=== PATIENT | male | born 1955 | race Caucasian/White ===

== ENCOUNTER 2019-04-11 12:35 | Outpatient (CLI) | payer OTHER, MEDICARE ==
--- NOTE | 2019-04-11 13:40 | MRI ---
MRI of thecervical spine: 04/11/2019 COMPARISON:None available HISTORY:Mid cervical pain TECHNIQUE: Multiplanar multisequence MR imaging of thecervical spine without contrast Findings:The axial and sagittal imaging is limited by motion. Sagittal STIR imaging demonstrates no focal area of osseous marrow edema. Cervical vertebral body height and alignment appears within normal limits. No prevertebral soft tissu e abnormality. Moderate degenerative change is seen at the atlantoaxial interspace. The craniocervical junction and cervicothoracic junction is intact. Incidental note is made of multilevel small bilateral perineural sleeve cysts. The normal flow void of the right vertebral artery is not appreciated on the axial T2 imaging suggest ing possible vertebral artery occlusion. C2-3: No central canal or neural foraminal stenosis C3-4: There is disc desiccation with no central canal stenosis. Bilateral facet and uncovertebral ost eophyte causes moderate/severe bilateral neural foraminal stenosis. C4-5: There is disc desiccation. No central canal stenosis. Bilateral facet and uncovertebral osteoph yte formation with probable moderate bilateral neural foraminal stenosis, left greater than right. C5-6: There is disc desiccation. No central canal stenosis. Mild bilateral facet and uncovertebral os teophyte formation. Mild bilateral neural foraminal stenosis. C6-7: There is disc space narrowing with disc desiccation and disc bulge partially effacing the ventr al thecal sac and causing mild central canal stenosis. Bilateral facet and uncovertebral osteophyte formation noted with moderate/severe bilateral neural foraminal stenosis. C7-T1: Bilateral facet hypertrophy with no significant central canal or neural foraminal stenosis. The axial T2 imaging demonstrates no focal area of abnormal signal intensity within the cervical cord . IMPRESSION: 1. Multilevel degenerative change as detailed above. 2. Possible right vertebral artery occlusion.
--- NOTE | 2019-04-11 15:38 | MRI ---
MRI OF THE THORACIC SPINE PERFORMED WITHOUT CONTRAST ENHANCEMENT: 04/11/19 HISTORY: Mid back pain for a year and a half. The vertebral bodies are normal in height. Disc spaces all appear relatively well preserved. Cord sig nal change is within normal limits. No canal or foraminal stenosis. Small left sided cyst is seen inv olving one of the upper left nerve roots of incidental note and small nerve root cyst at the cervicot horacic junction. No paravertebral masses. There are hyperdensities involving the kidney which are most likely cysts. At the C6-7 level on the country manager images, there is a slightly prominent disc bulge. Please refer to the MRI cervical spine report concerning this finding. IMPRESSION: Essentially unremarkable MRI of the thoracic spine. POS: DODIE
== END 2019-04-11 12:36 | disposition home or self-care (01) ==
LOC: TBSIIMAG 12:35
PROVIDERS: ATTEND Physician Assistant
DX: M54.12 Radiculopathy, cervical region (principal); M54.6 Pain in thoracic spine; M25.78 Osteophyte, vertebrae
CPT/HCPCS: 72141; 72146

== ENCOUNTER 2019-07-24 06:07 | Outpatient (CLI) | payer BC, MEDICARE, OTHER ==
[2019-07-24 12:22] LABS: #Basophils 0.1 thou/uL (0.0-0.2); #Eosinphils 0.3 thou/uL (0.0-0.7); #Lymphocytes 2.8 thou/uL (1.20-3.40); #Neutrophils 7.2 thou/uL (1.40-6.50); %Eosinophils 2.6 % (0.0-10.0); %Lymphocytes 24.2 % (21.0-51.0); %Monocytes 8.8 % (0.0-10.0); %Neutrophils 63.5 % (42.0-75.0); Mean Corpuscular HGB CONC 32.2 g/dL (32.0-36.0); Mean Corpuscular Hemoglobin 30.3 pg (27.0-31.0); Mean Platelet Volume 11.6 fL (7.4-10.4); Platelet Count 228 thou/uL (130-400); RBC Distribution Width 12.2 % (11.5-14.5); Red Blood Cell (RBC) Count 4.96 mill/uL (4.70-6.10); White Blood Cell (WBC) Count 11.4 thou/uL (4.8-10.8)
[2019-07-24 12:44] LABS: Anion Gap 14 mmol/L (10-20); BUN (Urea Nitrogen) 20 mg/dL (8.4-25.7); Calc. Creatinine Clearance 0 mL/min (70-130); Calcium 9.4 mg/dL (7.8-10.44); Carbon Dioxide 23 mmol/L (23-31); Chloride 109 mmol/L (98-107); Estimated GFR-MDRD 83; Glucose 88 mg/dL (80-115); Potassium 4.6 mmol/L (3.5-5.1); Sodium 141 mmol/L (136-145)
--- NOTE | 2019-07-24 17:38 | EKG ---
Test Reason : Blood Pressure : / mmHG Vent. Rate : 064 BPM Atrial Rate : 064 BPM P-R Int : 150 ms QRS Dur : 080 ms QT Int : 404 ms P-R-T Axes : 066 026 052 degrees QTc Int : 416 ms Normal sinus rhythm Normal ECG No previous ECGs available Confirmed by VAL OLSEN, DR. Mathew ([id number]) on 07/24/2019 5:38:10 PM Referred By: JEFFREY Confirmed By:DR. Quincy NEAL MD
[2019-07-24 18:37] LABS: SARS-CoV-2 MS2 Positive; SARS-CoV-2 N Gene Negative; SARS-CoV-2 S Gene Negative; SARS-CoV-2 orf1ab Negative
== END 2019-07-24 06:08 | disposition home or self-care (01) ==
LOC: LABBT 06:07
PROVIDERS: ATTEND Neurological Surgery
DX: Z01.818 Encounter for other preprocedural examination (principal); Z11.59 Encounter for screening for other viral diseases; M54.12 Radiculopathy, cervical region
CPT/HCPCS: 80048; 85025; 87635; 93005; 93010; U0003

== ENCOUNTER 2019-07-29 06:42 | Observation (INO) | payer BC, MEDICARE ==
[2019-07-29] MEDS ORDERED: Fentanyl 100 MCG/2 ML VIAL ONE ×2 (07:33→10:29)
[2019-07-29] MEDS ORDERED: Labetalol HCl 100 MG/20 ML VIAL ONE ×2 (07:41→12:35)
[2019-07-29] MEDS ORDERED: Ondansetron HCl/PF 4 MG/2 ML Vial IVP PRN (09:38)
[2019-07-29] MEDS ORDERED: Morphine Sulfate 2 MG/ML SYRINGE SLOW IVP PRN (09:38)
[2019-07-29] MEDS ORDERED: PACU-Morphine 4MG/ML VIAL SLOW IVP PRN (09:38)
[2019-07-29] MEDS ORDERED: HYDROmorphone 2 MG/ML VIAL SLOW IVP PRN (09:38)
[2019-07-29] MEDS ORDERED: Promethazine HCl 25 MG/ML VIAL SLOW IVP PRN (09:38)
[2019-07-29] MEDS ORDERED: Promethazine HCl 25 MG/ML VIAL IM PRN ×2 (09:38→10:22)
[2019-07-29] MEDS ORDERED: Albuterol Sulfate HFA (OR ONLY) ONE ×2 (09:41→12:35)
[2019-07-29] MEDS ORDERED: traMADol HCl 50 MG TAB PO PRN ×2 (10:22)
[2019-07-29] MEDS ORDERED: diphenhydrAMINE 25 MG CAP PO PRN (10:22)
[2019-07-29] MEDS ORDERED: Milk Of Magnesia 30 ML UDCUP PO PRN (10:22)
[2019-07-29] MEDS ORDERED: Mag-Al 1200 mg/1200 mg/30 ML UDCUP PO PRN (10:22)
[2019-07-29] MEDS ORDERED: Promethazine 25 MG TAB PO PRN (10:22)
[2019-07-29] MEDS ORDERED: tiZANidine HCl 4 MG TAB PO PRN (10:22)
[2019-07-29] MEDS ORDERED: diphenhydrAMINE 50 MG/ML VIAL IVP PRN (10:22)
[2019-07-29] MEDS ORDERED: Morphine 2 MG/ML SYRINGE SLOW IVP PRN (10:22)
[2019-07-29] MEDS ORDERED: Promethazine HCl 12.5 MG SUPP PR PRN (10:22)
[2019-07-29] MEDS ORDERED: Morphine 4 MG/ML VIAL SLOW IVP PRN (10:22)
[2019-07-29] MEDS ORDERED: HYDROcodone/Acetaminophen 10/325 mg Tablet PO PRN (10:22)
[2019-07-29] MEDS ORDERED: Ondansetron PF 4 MG/2 ML Vial IVP PRN (10:25)
--- NOTE | 2019-07-29 10:25 | OP ---
DATE OF PROCEDURE: 07/29/2019 QA AUTOMATION ARCHITECT: Liliana Mcdonnell PA-C PROCEDURES PERFORMED: Anterior cervical diskectomy C6-C7, interbody arthrodesis, intervertebral biomechanical device, local morselized autograft, demineralized bone matrix, anterior titanium instrumentation, C6-C7. DESCRIPTION OF PROCEDURE: The patient was brought to the operating room and intubated. He was positioned supine with head in modest extension on a gel-filled donut. An incision was made in the right precervical area and dissected medial to the sternocleidomastoid muscle. We identified the anterior cervical spine, and the level was confirmed by x-ray. We debrided the anterior osteophytes. We placed distraction across the disk spaces and completely removed the intervertebral disk at C6-C7. Next, bony endplates were decorticated for the purpose of arthrodesis and appropriate-sized intervertebral biomechanical PEEK device was brought into the field and filled with demineralized bone matrix and local morselized autograft, and tapped in place securely at C6-C7. Next, an anterior plate was brought into the field and secured to C6 and C7 using two 14-mm screws at each level. The wound was then extensively irrigated and MAC hemostasis was secured, and the wound was closed in anatomic layers over drain. Job ID: [id number]
[2019-07-29] MEDS ORDERED: Ondansetron PF 4 MG/2 ML Vial ONE (12:35)
[2019-07-29] MEDS ORDERED: PROPOFOL 200 MG/20 ML VIAL ONE (12:35)
[2019-07-29] MEDS ORDERED: Rocuronium Bromide 10 MG/ML (10ML VIAL) ONE (12:35)
[2019-07-29] MEDS ORDERED: Dexamethasone 20 MG/5 ML VIAL ONE (12:35)
[2019-07-29] MEDS ORDERED: PHENYLEPHRINE-NS 100 MCG/ML 10 ML SYRINGE ONE (12:35)
[2019-07-29] MEDS ORDERED: Lidocaine 1% PF 5 ML VIAL ONE (12:35)
[2019-07-29] MEDS ORDERED: Glycopyrrolate 0.2 MG/ML 5 ML SYRINGE ONE (12:35)
[2019-07-29 13:18] VITALS: BMI 36.2
[2019-07-29] MEDS: CEFAZOLIN 2 GM in Premix Bag 1 BAG IVPB SCH ×2 (15:38→23:47)
[2019-07-29] MEDS: Sodium Chloride 0.9% 1,000 ML IV SCH ×2 (15:38→23:46)
[2019-07-29] MEDS: Cepastat Lozenges 1 LOZ PO PRN ×2 (19:42→22:27)
[2019-07-29] MEDS: HYDROcodone/Acetaminophen 10/325 mg Tablet PO PRN (20:17)
[2019-07-30] MEDS: Sodium Chloride 0.9% 1,000 ML IV SCH (07:41)
[2019-07-30] MEDS: HYDROcodone/Acetaminophen 10/325 mg Tablet PO PRN (08:22)
[2019-07-30] MEDS: CEFAZOLIN 2 GM in Premix Bag 1 BAG IVPB SCH (09:10)
[2019-07-30 11:02] VITALS: BP 167/89; TEMP 97.9
--- NOTE | 2019-07-31 06:47 | DIS ---
DATE OF ADMISSION: 07/29/2019 DATE OF DISCHARGE: 07/30/2019 The patient is a 63-year-old male, recently evaluated in our office for progressive neck pain. He was found to have significant degenerative disk disease at C6-C7. He underwent C6-C7 ACDF on 07/29/2019. Following the surgery, he was transitioned to the Med/Surg floor, where his pain was well controlled with p.o. medications, he was tolerating a regular diet, and he was voiding appropriately. MAYO drain was placed intraoperatively and had only 15 mL out over the first night. On exam on postoperative day #1, the patient was awake, alert, in no acute distress. He had free active range of motion of all extremities. No focal motor weakness. Incision was clean, dry, and intact. We will plan to dismiss to home. I have discussed home care and precautions. We will follow up with the patient in 2 weeks. I have prescribed [place] and Zanaflex. [employer] SUPER[employer]OR AWARxE was checked prior to discharge. Job ID: [id number]
== END 2019-07-30 12:20 | disposition home or self-care (01) ==
LOC: SDC 06:42 → SURG A 12:02
PROVIDERS: ADMIT Neurological Surgery; ATTEND Neurological Surgery
PROC: 0RG10A0 Fusion of Cervical Vertebral Joint with Interbody Fusion Device, Anterior Approach, Anterior Column, Open Approach (ICD-10-PCS; principal; 2019-07-29)
DX: M47.22 Other spondylosis with radiculopathy, cervical region (principal); I10 Essential (primary) hypertension; E78.5 Hyperlipidemia, unspecified; F17.200 Nicotine dependence, unspecified, uncomplicated; E66.9 Obesity, unspecified; Z68.36 Body mass index [BMI] 36.0-36.9, adult; Z79.82 Long term (current) use of aspirin; Z79.899 Other long term (current) drug therapy
CPT/HCPCS: 76000; 96361; 96374; 96375; 96376; C1713; C1776; G0378; J0690; J1100; J2001; J2270; J2405; J2704; J3010

== ENCOUNTER 2019-08-12 12:34 | Outpatient (CLI) | payer BC, MEDICARE, OTHER ==
--- NOTE | 2019-08-12 15:09 | RAD ---
CERVICAL SPINE 3 VIEWS: Date: 08/12/2019 HISTORY: Cervical radiculopathy. FINDINGS: Postop changes again noted at the C6-7 level with anterior plate and screws and interbody implant. Ve rtebral body height is maintained. There is slight anterolisthesis at C5-6. Mild anterior osteophytes . Slight posterolisthesis at C6-7. Moderate facet hypertrophy. IMPRESSION: Degenerative and postoperative changes of the cervical spine as described. POS: AH
== END 2019-08-12 12:35 | disposition home or self-care (01) ==
LOC: TBSIIMAG 12:34
PROVIDERS: ATTEND Neurological Surgery
DX: M47.22 Other spondylosis with radiculopathy, cervical region (principal); Z98.890 Other specified postprocedural states
CPT/HCPCS: 72040

== ENCOUNTER 2019-10-03 10:50 | Outpatient (CLI) | payer BC, MEDICARE ==
--- NOTE | 2019-10-03 11:23 | RAD ---
EXAM: XR Cerv Sp Ap Lat STANDARD PROVIDED CLINICAL HISTORY: Cervical radiculopathy. Follow-up postsurgical changes. COMPARISON: 08/30/2019 FINDINGS: C1 to the cervicothoracic junction is seen on the lateral swimmer's views of the cervical spine. Post surgical changes related to anterior cervical fusion at the C6-7 level are again seen with anterior plate and screws again present. Intradiscal prosthesis is noted. Again noted is mild anterolisthesis of C4 on C5 and C5 on C6 with slight anterolisthesis of C3 on C4 noted on today's exam. The vertebral body heights are within normal limits. Multilevel facet degenerative changes are identified . No fracture is seen, and there is no evidence of a hardware complication. Prevertebral soft tissues have normal appearance. IMPRESSION: 1. Slight anterolisthesis of C3 on C4 with mild anterolisthesis of C4 on C5 and C5 on C6. 2. Stable postoperative changes related to anterior cervical fusion at the C6-7 level. 3. Degenerative changes cervical spine.
== END 2019-10-03 10:51 | disposition home or self-care (01) ==
LOC: TBSIIMAG 10:50
PROVIDERS: ATTEND Neurological Surgery
DX: M47.22 Other spondylosis with radiculopathy, cervical region (principal); M43.12 Spondylolisthesis, cervical region; Z98.1 Arthrodesis status
CPT/HCPCS: 72040

== ENCOUNTER 2020-12-13 10:01 | Outpatient (CLI) | payer BC, MEDICARE | END 2020-12-13 10:02 | disposition home or self-care (01) | LOC: BICRAD 10:01 | PROVIDERS: ATTEND Nurse Practitioner Family | DX: M54.6 Pain in thoracic spine (principal); M47.816 Spondylosis without myelopathy or radiculopathy, lumbar region | CPT/HCPCS: 72072 ==

== ENCOUNTER 2021-01-17 10:20 | Outpatient (CLI) | payer BC, MEDICARE | END 2021-01-17 10:21 | disposition home or self-care (01) | LOC: TBSIIMAG 10:20 | PROVIDERS: ATTEND Specialist | DX: M47.24 Other spondylosis with radiculopathy, thoracic region (principal) | CPT/HCPCS: 72146 ==

== ENCOUNTER 2021-09-10 16:54 | Inpatient (IN) | payer BC, MEDICARE ==
[2021-09-10 19:54] LABS: SARS-CoV-2 NAA Rapid Test Not Detected (NotDetected)
[2021-09-10] MEDS ORDERED: Acetaminophen 650 MG Suppository PR PRN (20:20)
[2021-09-10] MEDS ORDERED: Acetaminophen 325 MG TAB PO PRN (20:20)
[2021-09-10] MEDS ORDERED: Piperacillin/Tazobactam 3.375 GM in Sodium Chloride 0.9% 100 ML IVPB SCH ×2 (20:30→23:59)
[2021-09-10 21:39] VITALS: BMI 39.0
[2021-09-10] MEDS: Sodium Chloride 0.9% 1,000 ML IV SCH (21:44)
[2021-09-10] MEDS: Morphine 2 MG/ML VIAL SLOW IVP PRN (22:03)
[2021-09-11] MEDS: Piperacillin/Tazobactam 3.375 GM in Sodium Chloride 0.9% 100 ML IVPB SCH ×3 (01:55→17:54)
[2021-09-11] MEDS ORDERED: Piperacillin/Tazobactam 3.375 GM in Sodium Chloride 0.9% 100 ML IVPB SCH (02:00)
[2021-09-11 03:28] LABS: Bilirubin Negative (Negative); Blood, Urine Trace (Negative); Clarity Clear (Clear); Glucose, Urine (Dipstick) Normal (Negative); Ketone, Urine Trace mg/dL (Negative); Leukocyte 250 Leu/uL (Negative); Nitrite Negative (Negative); Protein, Urine (Dipstick) Negative (Neg-Trace); Specific Gravity, Urine 1.017 (1.002-1.036); Urobilinogen Normal mg/dL (Less than 2)
[2021-09-11 03:40] LABS: RBC/HPF None Seen HPF (0-3); WBC/HPF 0-3 HPF (0-3)
[2021-09-11 06:46] LABS: #Basophils 0.1 thou/uL (0.0-0.2); #Eosinphils 0.1 thou/uL (0.0-0.7); #Lymphocytes 1.7 thou/uL (1.20-3.40); #Monocytes 1.1 thou/uL (0.11-0.59); #Neutrophils 10.6 thou/uL (1.40-6.50); %Basophils 0.4 % (0.0-1.0); %Eosinophils 0.5 % (0.0-10.0); %Lymphocytes 12.2 % (21.0-51.0); %Monocytes 8.3 % (0.0-10.0); %Neutrophils 78.7 % (42.0-75.0); Mean Corpuscular HGB CONC 32.1 g/dL (32.0-36.0); Mean Corpuscular Hemoglobin 29.7 pg (27.0-31.0); Mean Corpuscular Volume 92.6 fL (78.0-98.0); Mean Platelet Volume 11.2 fL (7.4-10.4); Platelet Count 159 thou/uL (130-400); RBC Distribution Width 13.9 % (11.5-14.5); Red Blood Cell (RBC) Count 4.71 mill/uL (4.70-6.10); White Blood Cell (WBC) Count 13.5 thou/uL (4.8-10.8)
[2021-09-11 07:04] LABS: Anion Gap 13 mmol/L (10-20); BUN (Urea Nitrogen) 14 mg/dL (8.4-25.7); Calc. Creatinine Clearance 148 mL/min (70-130); Calcium 8.6 mg/dL (7.8-10.44); Carbon Dioxide 24 mmol/L (23-31); Chloride 107 mmol/L (98-107); Estimated GFR 95; Glucose 97 mg/dL (80-115); Potassium 3.5 mmol/L (3.5-5.1); Sodium 140 mmol/L (136-145)
[2021-09-11] MEDS: Sodium Chloride 0.9% 1,000 ML IV SCH ×2 (09:31→23:50)
[2021-09-11] MEDS ORDERED: Tamsulosin HCl 0.4 MG CAP PO SCH (11:00)
[2021-09-11] MEDS: Morphine 2 MG/ML VIAL SLOW IVP PRN ×2 (14:34→19:36)
[2021-09-11] MEDS ORDERED: Calcium Carbonate 500 MG ChewTAB PO PRN (18:56)
[2021-09-11] MEDS: metroNIDAZOLE 500 MG TAB PO SCH (19:37)
[2021-09-12 06:11] LABS: #Basophils 0.1 thou/uL (0.0-0.2); #Eosinphils 0.1 thou/uL (0.0-0.7); #Lymphocytes 1.5 thou/uL (1.20-3.40); #Monocytes 1.2 thou/uL (0.11-0.59); #Neutrophils 10.1 thou/uL (1.40-6.50); %Basophils 0.5 % (0.0-1.0); %Eosinophils 0.6 % (0.0-10.0); %Lymphocytes 11.4 % (21.0-51.0); %Monocytes 9.5 % (0.0-10.0); Hemoglobin 13.7 g/dL (14.0-18.0); Mean Corpuscular HGB CONC 33.7 g/dL (32.0-36.0); Mean Corpuscular Hemoglobin 30.6 pg (27.0-31.0); Mean Corpuscular Volume 90.9 fL (78.0-98.0); Mean Platelet Volume 11.3 fL (7.4-10.4); Platelet Count 164 thou/uL (130-400); RBC Distribution Width 13.7 % (11.5-14.5); Red Blood Cell (RBC) Count 4.48 mill/uL (4.70-6.10); White Blood Cell (WBC) Count 12.9 thou/uL (4.8-10.8)
[2021-09-12] MEDS: Morphine 2 MG/ML VIAL SLOW IVP PRN ×3 (06:14→20:17)
[2021-09-12] MEDS: metroNIDAZOLE 500 MG TAB PO SCH ×3 (08:50→20:17)
[2021-09-12] MEDS: Sodium Chloride 0.9% 1,000 ML IV SCH ×2 (08:50→20:18)
[2021-09-12] MEDS: Tamsulosin HCl 0.4 MG CAP PO SCH (08:50)
[2021-09-12] MEDS ORDERED: Furosemide 20 MG TAB PO SCH (11:30)
[2021-09-13 07:21] LABS: Anion Gap 12 mmol/L (10-20); BUN (Urea Nitrogen) 12 mg/dL (8.4-25.7); Calc. Creatinine Clearance 159 mL/min (70-130); Calcium 8.8 mg/dL (7.8-10.44); Carbon Dioxide 23 mmol/L (23-31); Chloride 110 mmol/L (98-107); Estimated GFR 97; Glucose 90 mg/dL (80-115); Potassium 3.4 mmol/L (3.5-5.1); Sodium 142 mmol/L (136-145)
[2021-09-13] MEDS: metroNIDAZOLE 500 MG TAB PO SCH (08:23)
[2021-09-13] MEDS: Tamsulosin HCl 0.4 MG CAP PO SCH (08:23)
[2021-09-13] MEDS ORDERED: Potassium Chloride 20 MEQ TAB PO SCH (09:00)
[2021-09-13 12:18] VITALS: BP 135/82; TEMP 98.1
== END 2021-09-13 12:37 | disposition home or self-care (01) | DRG 392 ==
LOC: ERS 16:54 → T4-A 19:21
PROVIDERS: ADMIT Student in an Organized Health Care Education/Training Program; ATTEND Internal Medicine
DX: K57.20 Diverticulitis of large intestine with perforation and abscess without bleeding (principal); Z20.822 Contact with and (suspected) exposure to COVID-19; R33.9 Retention of urine, unspecified; M19.90 Unspecified osteoarthritis, unspecified site; M54.50 Low back pain, unspecified; G89.29 Other chronic pain; Z96.653 Presence of artificial knee joint, bilateral; E78.5 Hyperlipidemia, unspecified; E78.00 Pure hypercholesterolemia, unspecified; Z79.899 Other long term (current) drug therapy; Z87.891 Personal history of nicotine dependence
CPT/HCPCS: 36415; 80048; 81001; 83605; 85025; 87040; 93306; 96360; J2270; J2543; J3490; J7050; U0002

== ENCOUNTER 2022-10-02 08:53 | Day surgery (SDC) | payer BC, MEDICARE ==
[2022-09-28 10:50] VITALS: BMI 40.4
[2022-10-02] MEDS ORDERED: Sodium Chloride 0.9% 0 ML ONE (09:40)
[2022-10-02] MEDS ORDERED: CEFAZOLIN 2 GM VIAL ONE (09:40)
[2022-10-02] MEDS ORDERED: Lidocaine 2% PF 5 ML VIAL ONE (10:04)
[2022-10-02] MEDS ORDERED: Vancomycin 1 GM VIAL ONE (10:04)
[2022-10-02] MEDS ORDERED: Bupivacaine HCl 0.5%/Epinephrine 1:200,000/PF 30 ml Vial ONE (10:04)
[2022-10-02] MEDS ORDERED: fentaNYL PF 100 MCG/2 ML SYRINGE ONE (10:52)
[2022-10-02] MEDS ORDERED: Propofol 1,000 MG/100 ML VIAL IV ONE (10:52)
[2022-10-02] MEDS ORDERED: Midazolam HCl 2 mg/2 ml Vial ONE (11:09)
== END 2022-10-02 12:08 | disposition home or self-care (01) ==
LOC: SDC 08:53
PROVIDERS: ATTEND Specialist
DX: G89.4 Chronic pain syndrome (principal); M96.1 Postlaminectomy syndrome, not elsewhere classified; M54.12 Radiculopathy, cervical region; I10 Essential (primary) hypertension; Z53.9 Procedure and treatment not carried out, unspecified reason
CPT/HCPCS: 93005; 93010; J2001; J2250; J2704; J3370; J3490

== ENCOUNTER 2022-10-06 06:04 | Day surgery (SDC) | payer BC, MEDICARE ==
[2022-10-05 11:15] VITALS: BMI 40.4
[2022-10-06] MEDS ORDERED: Lidocaine 1% MPF 2 ML VIAL ONE (07:22)
[2022-10-06] MEDS ORDERED: CEFAZOLIN 2 GM VIAL ONE (07:22)
[2022-10-06] MEDS ORDERED: Sodium Chloride 0.9% 100 ML ONE (07:23)
[2022-10-06] MEDS ORDERED: Lidocaine 1% (PF) 30 ML VIAL ONE (08:15)
[2022-10-06] MEDS ORDERED: Bupivacaine HCl 0.5%/Epinephrine 1:200,000/PF 30 ml Vial ONE (08:15)
[2022-10-06] MEDS ORDERED: Midazolam HCl 2 mg/2 ml Vial ONE (08:18)
[2022-10-06] MEDS ORDERED: Fentanyl 250 MCG/5 ML VIAL ONE (08:22)
[2022-10-06] MEDS ORDERED: Dexmedetomidine 200 MCG/2 ML VIAL ONE (08:27)
[2022-10-06] MEDS ORDERED: PROPOFOL 200 MG/20 ML VIAL ONE (09:03)
[2022-10-06] MEDS ORDERED: ePHEDrine Sulfate 50 MG/10 ML VIAL ONE (09:03)
[2022-10-06] MEDS ORDERED: Dexamethasone 20 MG/5 ML VIAL ONE (09:03)
[2022-10-06] MEDS ORDERED: Lidocaine 1% PF 5 ML VIAL ONE (09:03)
[2022-10-06] MEDS ORDERED: Ondansetron PF 4 MG/2 ML Vial ONE (09:03)
[2022-10-06] MEDS ORDERED: Rocuronium Bromide 10 MG/ML (10ML VIAL) ONE (09:03)
[2022-10-06] MEDS ORDERED: HYDROmorphone 2 MG/ML VIAL SLOW IVP PRN (09:36)
[2022-10-06] MEDS ORDERED: Ondansetron HCl/PF 4 MG/2 ML Vial IVP PRN (09:36)
[2022-10-06] MEDS ORDERED: Promethazine HCl 25 MG/ML VIAL IM PRN (09:36)
[2022-10-06] MEDS ORDERED: fentaNYL 50 mcg/mL 1 mL Vial ONE (11:27)
== END 2022-10-06 14:06 | disposition home or self-care (01) ==
LOC: SDC 06:04
PROVIDERS: ATTEND Specialist
PROC: 0JH70BZ Insertion of Single Array Stimulator Generator into Back Subcutaneous Tissue and Fascia, Open Approach (ICD-10-PCS; principal; 2022-10-06)
PROC: 00HU0MZ Insertion of Neurostimulator Lead into Spinal Canal, Open Approach (ICD-10-PCS; principal; 2022-10-06)
DX: G89.4 Chronic pain syndrome (principal); M96.1 Postlaminectomy syndrome, not elsewhere classified; M54.12 Radiculopathy, cervical region
CPT/HCPCS: 72020; C1713; J1100; J2001; J2250; J2405; J2704; J3010; J3490